=== PATIENT | female | born 1965 | race Caucasian/White ===

== ENCOUNTER → 2021-02-23 | Outpatient (CLI) | payer BC ==
[2021-02-23 10:53] LABS: RBC (AUTOMATED) 900 10^6 (0); WBC (AUTOMATED 0 10^3 (0-5)
[2021-02-23 10:56] LABS: RBC (AUTOMATED) 100 10^6 (0); WBC (AUTOMATED 2 10^3 (0-5)
[2021-02-23 11:38] LABS: GLUCOSE,CSF 46 mg/dL (50-80); TOTAL PROTEIN,CSF 36 mg/dL (20-45)
[2021-02-27 16:11] LABS: MYELIN BASIC PROTEIN, CSF 6.2 ng/mL (0.0-3.7)
== END ==
LOC: RAD 08:52
PROVIDERS: Psychiatry & Neurology Neurology
DX: G35 Multiple sclerosis (principal)
CPT/HCPCS: 82784; 82945; 83873; 83916; 84157; 87015; 87070; 87116; 87205; 87210; 87252; 89051

== ENCOUNTER 2021-02-27 08:26 | Emergency (ER) | payer BC ==
[2021-02-27 12:21] LABS: HEMOGLOBIN 12.9 gm/dl (12.3-15.3); RED BLOOD COUNT 4.27 M/UL (4.00-5.10); WHITE BLOOD COUNT 4.2 K/UL (4.5-11.0)
== END 2021-02-27 14:55 | disposition home or self-care (01) ==
LOC: ER1 08:26
PROVIDERS: Physician Assistant
DX: G97.1 Other reaction to spinal and lumbar puncture (principal); Z90.49 Acquired absence of other specified parts of digestive tract; Z88.5 Allergy status to narcotic agent; Z88.0 Allergy status to penicillin; Z91.041 Radiographic dye allergy status; Z79.899 Other long term (current) drug therapy
CPT/HCPCS: 62270; 85025; 99284